=== PATIENT | female | born 1990 | race Caucasian/White ===

== ENCOUNTER 2019-02-21 09:18 | Emergency (ER) | payer MEDICAID, OTHER, SELFPAY ==
--- NOTE | 2019-02-21 09:55 | ERPHSYRPT ---
- History of Present Illness Time Seen by Provider: 02/21/19 09:35 Source: patient Exam Limitations: clinical condition Patient Subjective Stated Complaint: slipped and fell on wooden steps and wants to do a baby check due to being 16 weeks Triage Nursing Assessment: Pt stated that she slipped and fell on wooden wet steps and is 16 weeks , wants to make sure the baby is okay, left lower back has abrasions and minor swelling, left lateral ankle has an abrasion, heart tones heard of 160, reports no other issues at this time Physician History: PATIENT IS A -1, 16 WEEKS GESTATION STATES SHE SLIPPED ONTO STEPS, FELL AND SUSTAINED INJURY TO LEFT LOWER BACK, LEFT HIP AND LEFT ANKLE. DENIES ASSOCIATED HEAD, NECK OR ABDOMINAL INJURY. Occurred: just prior to arrival Reason for Fall: slipped Injuries/Pain Location: back, lower extremity Loss of Consciousness: no loss of consciousness Quality: throbbing Severity of Pain-Max: moderate Severity of Pain-Current: moderate Modifying Factors: Improves With: movement Associated Symptoms (Fall): back pain, extremity injury Allergies/Adverse Reactions: amoxicillin trihydrate [From Augmentin] Allergy (Verified 06/17/16 19:46) chocolate flavor Allergy (Verified 02/21/19 09:34) Penicillins Allergy (Verified 06/17/16 19:46) potassium clavula *RETIRED-03/19/13 [From Augmentin] Allergy (Unverified 19:46) potassium clavulanate [From Augmentin] Allergy (Verified 06/17/16 19:46) Home Medications: Vits W-Ca,Fe,FA(<1Mg) [] 1 each PO DAILY 02/21/19 [History] Hx Tetanus, Diphtheria Vaccination/Date Given: Yes (up to date) Hx Influenza Vaccination/Date Given: No Hx Pneumococcal Vaccination/Date Given: No - Review of Systems Constitutional: No Fever, No Chills Eyes: No Symptoms Ears, Nose, & Throat: No Symptoms Respiratory: No Cough, No Dyspnea Cardiac: No Chest Pain, No Edema, No Syncope Abdominal/Gastrointestinal: No Abdominal Pain, No Nausea, No Vomiting, No Diarrhea Genitourinary Symptoms: No Dysuria Musculoskeletal: Injury, Joint Pain, Joint Swelling, No Back Pain, No Neck Pain Skin: No Rash Neurological: No Dizziness, No Focal Weakness, No Sensory Changes Psychological: No Symptoms Endocrine: No Symptoms All Other Systems: Reviewed and Negative - Past Medical History Pertinent Past Medical History: Yes Neurological History: No Pertinent History ENT History: No Pertinent History Cardiac History: No Pertinent History Respiratory History: No Pertinent History Endocrine Medical History: No Pertinent History Musculoskeletal History: No Pertinent History GI Medical History: No Pertinent History History: No Pertinent History Psycho-Social History: Anxiety Female Reproductive Disorders: No Pertinent History - Past Surgical History Past Surgical History: No Neuro Surgical History: No Pertinent History Cardiac: No Pertinent History Respiratory: No Pertinent History Gastrointestinal: No Pertinent History Genitourinary: No Pertinent History Musculoskeletal: No Pertinent History Female Surgical History: No Pertinent History Other Surgical History: tonsilectomy - Social History Smoking Status: Former smoker How long have you smoked: 3 YEARS Exposure to second hand smoke: No Drug Use: none Patient Lives Alone: No - Female History Hx Now: Yes Expected Date of Delivery: 08/07/19 - Nursing Vital Signs Nursing Vital Signs: Initial Vital Signs Temperature 97.9 F 02/21/19 09:23 Pulse Rate 98 H 02/21/19 09:23 Blood Pressure 129/77 02/21/19 09:23 O2 Sat by Pulse Oximetry 100 02/21/19 09:23 Pain Scale Pain Intensity 0 - [place] Coma Score Best Eye Response (Judi): (4) open spontaneously Best Verbal Response (Judi): (5) oriented Best Motor Response ([place]): (6) obeys commands Judi Total: 15 - Physical Exam General Appearance: no apparent distress, alert Head Injury: no evidence of injury Eye Exam: PERRL/EOMI ENT Exam: airway nml Neck Exam: supple, full range of motion, normal inspection, No tenderness Respiratory/Chest Exam: normal breath sounds, No chest tenderness, No respiratory distress Cardiovascular Exam: normal heart sounds, regular rate/rhythm Gastrointestinal Exam: soft, normal bowel sounds, other (, UTERUS ENLARGED TO LEVEL OF UMBILICUS), No tenderness, No distention, No guarding, No ecchymosis Back Exam: normal inspection, normal range of motion, other (TENDERNESS LEFT POSTERIOR PELVIS ABRASION 7CM X 8CM AREA SWELLING WITH FAINT ECCHYMOSIS, NO CREPITUS), No vertebral tenderness Extremity Exam: normal inspection, normal range of motion, pelvis stable, tenderness (TENDERNESS LEFT GREATER TROCHANTER, NO CREPITUS OR ECCHYMOS, FULL RANGE OF MOTION LEFT HIP, LEFT ANKLE 1CM ABRASION, MINIMAL SWELLING), No deformities Neurologic Exam: alert, oriented x 3, cooperative, sensation nml, No motor deficits Skin Exam: normal color, warm, dry SpO2 Interpretation: normal SpO2: 100 - Progress Progress Note: 02/21/19 09:56 HEART TONES 160 Counseled pt/family regarding: diagnosis, need for follow-up - Departure Departure Disposition: Home Clinical Impression: LEFT POSTERIOR PELVIC CONTUSION, LEFT HIP CONTUSION, LEFT ANKLE ABRASION/ CONTUSION Condition: Stable Critical Care Time: No Referrals: KHUSHBU BUCKNER [Primary Care Provider] - Additional Instructions: TYLENOL EVERY 4 HOURS NEEDED FOR PAIN. APPLY ICE OVER EXTREMITY AND BACK SWELLING EVERY 4 HOURS, 30 MINUTES FOR 48 HOURS. FOLLOWUP WITH YOUR PRIMARY CARE PROVIDER IN 1 WEEK.
[2019-02-21 10:14] VITALS: BP 136/92; PULSE 78; O2SAT 98
== END 2019-02-21 10:17 | disposition home or self-care (01) ==
LOC: ED 09:18
DX: S30.0XXA Contusion of lower back and pelvis, initial encounter (principal); S30.810A Abrasion of lower back and pelvis, initial encounter; S90.512A Abrasion, left ankle, initial encounter; S70.02XA Contusion of left hip, initial encounter; W01.198A Fall on same level from slipping, tripping and stumbling with subsequent striking against other object, initial encounter; R58 Hemorrhage, not elsewhere classified; F41.9 Anxiety disorder, unspecified; Z33.1 Pregnant state, incidental
CPT/HCPCS: 99283

== ENCOUNTER 2019-07-16 08:04 | Observation (INO) | payer OTHER ==
[2019-07-16 09:19] VITALS: O2SAT 98
[2019-07-16 09:47] LABS: Appearance SLIGHTLY CLOUDY (CLEAR); Bacteria RARE /HPF (NEGATIVE); Bilirubin NEGATIVE (NEGATIVE); Blood SMALL Ery/ul (0-5); Epithelial Cells RARE /HPF (FEW); Glucose NEGATIVE (NEGATIVE); Ketones NEGATIVE (NEGATIVE); Leukocyte Esterase SMALL (NEGATIVE); Mucus SLIGHT /HPF (NEGATIVE); Nitrite NEGATIVE (NEGATIVE); Protein,Urine Dip NEGATIVE (Negative); Specific Gravity 1.012 (1.005-1.025); Urobilinogen NEGATIVE mg/dL (0-1)
[2019-07-16 09:49] LABS: RBC 0-2 /HPF (0-2)
[2019-07-16] MEDS ORDERED: PITOCIN 30 UNITS/ LR 500 ML 500 ML IV SCH (10:30)
[2019-07-16] MEDS: Lactated Ringers 1,000 ML IV SCH ×3 (10:31→16:32)
[2019-07-16 10:35] LABS: BASOPHIL % 0.2 % (0.0-0.4); Basophil (Absolute #) 0.03 (0-0.4); Eosinophil % 0.3 % (0.00-5.0); Eosinophil (Absolute #) 0.05 (0-0.5); Granulocyte Absolute (ANC) 11.88 (1.4-6.9); Granulocytes % 80.5 % (36.0-66.0); Hematocrit 34.9 % (35-47); Hemoglobin 11.3 gm/dl (12.0-16.0); Lymphocyte (Absolute #) 1.68 (1.0-4.6); Lymphocytes % 11.4 % (24.0-44.0); Mean Cell Volume 87.7 fl (78-100); Mean Corpuscular Hgb Concent. 32.4 g/dl (32-36); Mean Platelet Volume 10.1 fl (6-9.5); Monocyte (Absolute #) 1.12 (0.0-1.3); Monocytes % 7.6 % (0.0-12.0); Platelet Count 277 K/mm3 (150-450); Red Blood Count 3.98 M/mm3 (4.1-5.4); Red Cell Distribution Width 12.9 % (11.5-14.0); White Blood Count 14.8 K/mm3 (4.0-10.5)
[2019-07-16 10:40] LABS: Mean Corpuscular Hemoglobin 28.3 pg (26-32)
[2019-07-16 12:57] LABS: Amphetamine,Urine NEGATIVE (NEGATIVE); Barbiturate,Urine NEGATIVE (NEGATIVE); Benzodiazepine,Urine NEGATIVE (NEGATIVE); Cocaine,Urine NEGATIVE (NEGATIVE); Methadone,Urine NEGATIVE (NEGATIVE); Opiate,Urine NEGATIVE (NEGATIVE); PCP,Urine NEGATIVE (NEGATIVE); THC,Urine NEGATIVE (NEGATIVE)
[2019-07-16 13:11] VITALS: BP 124/64; PULSE 77
[2019-07-16] MEDS ORDERED: STADOL 2 MG IV PRN (14:11)
== END 2019-07-16 17:50 | disposition home or self-care (01) ==
LOC: OB 08:04
PROVIDERS: ADMIT Family Medicine; ATTEND Family Medicine
DX: O60.03 Preterm labor without delivery, third trimester (principal); Z3A.36 36 weeks gestation of pregnancy
CPT/HCPCS: 36415; 80307; 81001; 85025; 87340; G0378; J0595

== ENCOUNTER 2019-09-13 22:17 | Emergency (ER) | payer OTHER ==
--- NOTE | 2019-09-13 22:58 | ERPHSYRPT ---
- History of Present Illness Time Seen by Provider: 09/13/19 22:58 Historian: patient Exam Limitations: no limitations Patient Subjective Stated Complaint: "I have had pain in my right side abd near my belly button. It has hurt for a few days now. I am about 8 weeks post . I have had nausea. My pain has recently radiated to my pelvic region. Triage Nursing Assessment: Pt presents to ER with complaints of abd pains, states pain is in right side and has radiated to lower pelvic region. States has had nausea, denies vomiting or diarrhea. States everytime she eats something her stomach hurts. Rates pain 7/10 scale. Tenderness on palpatation. Pt lungs clear and resp unlabored at this time. States had normal delivery of baby 8 weeks prior. Vaginal delivery. Denies menstral cycle post . States is sexual active without pain during intercourse. Denies any increased discharge or bleeding. Physician History: pt had post delivery bleeding for three weeks and now has intermittent sharp pains in right adnexa - no discharge, some urinary symptoms of pressure abdomen has no peritoneal signs or rebound and minimal right mid tenderness Activities at Onset: other (sex activity precipitated originally) Abdominal Pain Onset Location: periumbilical, suprapubic Pain Radiation: periumbilical Severity of Pain-Max: moderate Severity of Pain-Current: moderate Modifying Factors: Improves With: movement, urinating Associated Symptoms: No fever/chills, No vomiting Previous symptoms: same symptoms as today Allergies/Adverse Reactions: amoxicillin trihydrate [From Augmentin] Allergy (Verified 09/13/19 22:47) chocolate flavor Allergy (Verified 09/13/19 22:47) Penicillins Allergy (Verified 09/13/19 22:47) potassium clavula *RETIRED-03/19/13 [From Augmentin] Allergy (Verified 09/13/19 22:47) potassium clavulanate [From Augmentin] Allergy (Verified 09/13/19 22:47) Hx Tetanus, Diphtheria Vaccination/Date Given: No Hx Influenza Vaccination/Date Given: No Hx Pneumococcal Vaccination/Date Given: No Immunizations Up to Date: Yes - Review of Systems Constitutional: No Fever, No Chills Eyes: No Symptoms Ears, Nose, & Throat: No Symptoms Respiratory: No Cough, No Dyspnea Cardiac: No Chest Pain, No Edema, No Syncope Abdominal/Gastrointestinal: Abdominal Pain, No Nausea, No Vomiting, No Diarrhea Genitourinary Symptoms: Dysuria, Frequency Musculoskeletal: No Back Pain, No Neck Pain Skin: No Rash Neurological: No Dizziness, No Focal Weakness, No Sensory Changes Psychological: No Symptoms Endocrine: No Symptoms Hematologic/Lymphatic: No Symptoms Immunological/Allergic: No Symptoms All Other Systems: Reviewed and Negative - Past Medical History Pertinent Past Medical History: Yes Neurological History: No Pertinent History ENT History: No Pertinent History Cardiac History: No Pertinent History Respiratory History: No Pertinent History Endocrine Medical History: No Pertinent History Musculoskeletal History: No Pertinent History GI Medical History: No Pertinent History History: No Pertinent History Psycho-Social History: Anxiety Female Reproductive Disorders: No Pertinent History - Past Surgical History Past Surgical History: Yes Neuro Surgical History: No Pertinent History Cardiac: No Pertinent History Respiratory: No Pertinent History Gastrointestinal: No Pertinent History Genitourinary: No Pertinent History Musculoskeletal: No Pertinent History Female Surgical History: No Pertinent History Other Surgical History: wisdom and molar removed 08/15/19 - Social History Smoking Status: Former smoker How long have you smoked: 3 YEARS Exposure to second hand smoke: No Drug Use: none Patient Lives Alone: No - Female History Hx Last Menstrual Period: 11/01/2018 Hx Now: (unknown) - Nursing Vital Signs Nursing Vital Signs: Initial Vital Signs Temperature 98 F 09/13/19 22:32 Pulse Rate 78 09/13/19 22:32 Respiratory Rate 16 09/13/19 22:32 Blood Pressure 147/76 09/13/19 22:32 O2 Sat by Pulse Oximetry 98 09/13/19 22:32 Pain Scale Pain Intensity 7 - Physical Exam General Appearance: no apparent distress, alert Eye Exam: PERRL/EOMI, eyes nml inspection Ears, Nose, Throat Exam: normal ENT inspection, pharynx normal, moist mucous membranes Neck Exam: normal inspection, non-tender, supple, full range of motion Respiratory Exam: normal breath sounds, lungs clear, No respiratory distress Cardiovascular Exam: regular rate/rhythm, normal heart sounds Gastrointestinal/Abdomen Exam: soft, tenderness, No mass, No guarding, No pulsatile mass, No rebound, No organomegaly Pelvic Exam: deferred Rectal Exam: deferred Back Exam: normal inspection, normal range of motion, No CVA tenderness, No vertebral tenderness Extremity Exam: normal inspection, normal range of motion, pelvis stable Neurologic Exam: alert, oriented x 3, cooperative, normal mood/affect, nml cerebellar function, sensation nml, No motor deficits Skin Exam: normal color, warm, dry SpO2: 98 - Course Nursing assessment & vital signs reviewed: Yes - Radiology Ultrasound Exam Pelvis Ultrasound: No Torsion/Nml Flow (normal uterus also per tech report) , Other (ruptured ovarian cyst with fluid) Ordered Tests: Active Orders 24 hr Category Date Time Status IV Insertion STAT Care 09/13/19 23:04 Active PELVIC [US] Stat Exams 09/13/19 23:07 Ordered AMYLASE Stat Lab 09/13/19 23:25 Completed CBC W DIFF Stat Lab 09/13/19 23:25 Completed CMP Stat Lab 09/13/19 23:25 Completed HCG QUALITATIVE,SERUM Stat Lab 09/13/19 23:25 Completed LIPASE Stat Lab 09/13/19 23:25 Completed Lactic Acid Stat Lab 09/13/19 23:04 Completed UA W/RFX UR CULTURE Stat Lab 09/13/19 22:45 Completed Medication Summary Discontinued Medications Generic Name Dose Route Start Last Admin Trade Name Waqas PRN Reason Stop Dose Admin Sodium Chloride 1,000 mls @ 999 mls/hr 09/13/19 23:04 09/13/19 23:30 Sodium Chloride 0.9% 1000 Ml IV 09/14/19 00:04 999 mls/hr .Q1H1M STA Administration Sodium Chloride Confirm 09/13/19 23:28 Sodium Chloride 0.9% 1000 Ml Administered 09/13/19 23:29 Dose 1,000 mls @ ud .ROUTE .STK-MED ONE Lab/Rad Data: Laboratory Result Diagrams 09/13/19 23:25 09/13/19 23:25 Laboratory Results 09/14/19 09/13/19 09/13/19 Range/Units 00:18 23:25 23:25 WBC (4.0-10.5) K/mm3 RBC (4.1-5.4) M/mm3 Hgb (12.0-16.0) gm/dl Hct (35-47) % MCV (78-100) fl MCH (26-32) pg MCHC (32-36) g/dl RDW (11.5-14.0) % Plt Count (150-450) K/mm3 MPV (6-9.5) fl Gran % (36.0-66.0) % Eos # (Auto) (0-0.5) Absolute Lymphs (auto) (1.0-4.6) Absolute Monos (auto) (0.0-1.3) Lymphocytes % (24.0-44.0) % Monocytes % (0.0-12.0) % Eosinophils % (0.00-5.0) % Basophils % (0.0-0.4) % Absolute Granulocytes (1.4-6.9) Basophils # (0-0.4) Sodium 142 (137-145) mmol/L Potassium 3.6 (3.5-5.1) mmol/L Chloride 108 H (98-107) mmol/L Carbon Dioxide 26 (22-30) mmol/L Anion Gap 11.6 (5-15) MEQ/L BUN 8 (7-17) mg/dL Creatinine 0.75 (0.52-1.04) mg/dL Estimated GFR > 60.0 ML/MIN Glucose 111 H (74-106) mg/dL Lactic Acid 0.8 (0.4-2.0) Calcium 9.3 (8.4-10.2) mg/dL Total Bilirubin 0.30 (0.2-1.3) mg/dL AST 17 (14-36) U/L ALT 10 (0-35) U/L Alkaline Phosphatase 65 (38-126) U/L Serum Total Protein 6.9 (6.3-8.2) g/dL Albumin 3.8 (3.5-5.0) g/dL Amylase 58 (30-110) U/L Lipase 65 (23-300) U/L Serum , Qual NEGATIVE (Negative) Urine Color (YELLOW) Urine Appearance (CLEAR) Urine pH (5-6) Ur Specific [place] (1.005-1.025) Urine Protein (Negative) Urine Ketones (NEGATIVE) Urine Blood (0-5) Kirby/ul Urine Nitrite (NEGATIVE) Urine Bilirubin (NEGATIVE) Urine Urobilinogen (0-1) mg/dL Ur Leukocyte Esterase (NEGATIVE) Urine WBC (Auto) (0-5) /HPF Urine RBC (Auto) (0-2) /HPF Urine Mucus (Auto) (NEGATIVE) /HPF Urine Culture Reflexed (NO) Urine Glucose (NEGATIVE) mg/dL 10/19/19 10/19/19 Range/Units 23:25 22:45 WBC 6.1 (4.0-10.5) K/mm3 RBC 4.14 (4.1-5.4) M/mm3 Hgb 11.7 L (12.0-16.0) gm/dl Hct 36.2 (35-47) % MCV 87.4 (78-100) fl MCH 28.2 (26-32) pg MCHC 32.3 (32-36) g/dl RDW 15.5 H (11.5-14.0) % Plt Count 297 (150-450) K/mm3 MPV 10.3 H (6-9.5) fl Gran % 51.1 (36.0-66.0) % Eos # (Auto) 0.17 (0-0.5) Absolute Lymphs (auto) 2.12 (1.0-4.6) Absolute Monos (auto) 0.66 (0.0-1.3) Lymphocytes % 34.6 (24.0-44.0) % Monocytes % 10.8 (0.0-12.0) % Eosinophils % 2.8 (0.00-5.0) % Basophils % 0.7 (0.0-0.4) % Absolute Granulocytes 3.14 (1.4-6.9) Basophils # 0.04 (0-0.4) Sodium (137-145) mmol/L Potassium (3.5-5.1) mmol/L Chloride (98-107) mmol/L Carbon Dioxide (22-30) mmol/L Anion Gap (5-15) MEQ/L BUN (7-17) mg/dL Creatinine (0.52-1.04) mg/dL Estimated GFR ML/MIN Glucose (74-106) mg/dL Lactic Acid (0.4-2.0) Calcium (8.4-10.2) mg/dL Total Bilirubin (0.2-1.3) mg/dL AST (14-36) U/L ALT (0-35) U/L Alkaline Phosphatase (38-126) U/L Serum Total Protein (6.3-8.2) g/dL Albumin (3.5-5.0) g/dL Amylase (30-110) U/L Lipase (23-300) U/L Serum , Qual (Negative) Urine Color COLORLESS (YELLOW) Urine Appearance CLEAR (CLEAR) Urine pH 7.0 (5-6) Ur Specific [place] 1.001 (1.005-1.025) Urine Protein NEGATIVE (Negative) Urine Ketones NEGATIVE (NEGATIVE) Urine Blood NEGATIVE (0-5) Kirby/ul Urine Nitrite NEGATIVE (NEGATIVE) Urine Bilirubin NEGATIVE (NEGATIVE) Urine Urobilinogen NEGATIVE (0-1) mg/dL Ur Leukocyte Esterase NEGATIVE (NEGATIVE) Urine WBC (Auto) NONE (0-5) /HPF Urine RBC (Auto) NONE (0-2) /HPF Urine Mucus (Auto) SLIGHT (NEGATIVE) /HPF Urine Culture Reflexed NO (NO) Urine Glucose NEGATIVE (NEGATIVE) mg/dL - Progress Progress: improved, re-examined Progress Note: 09/14/19 01:13 discussed potential risk of appendicitis with pt and family and that CT scan could be helpful to exclude this - they have decided not to go with CT after discussion of risks and benefits and understand that there could be serious pathology still evolving undetected but have the capacity to make that choice. Counseled pt/family regarding: lab results, diagnosis, need for follow-up, rad results - Departure Departure Disposition: Home Clinical Impression: Abdominal pain of unknown etiology, ruptured ovarian cyst with fluid Condition: Good Critical Care Time: No Referrals: KHUSHBU BUCKNER [Primary Care Provider] - Instructions: Acute Abdomen (Belly Pain), Adult (DC), Ovarian Cyst (DC) Additional Instructions: Although a ruptured ovarian cyst was found , we have not yet determined the precise cause of your abdominal pain and additional problems could still be developing so further workup with your dr is advised especially if this continues. an early appendicitis is also a possibility. return meantime if not improving, any vomiting, fever, increased pain, dizziness or other concerns.
[2019-09-13] MEDS ORDERED: Sodium Chloride 0.9% 1000 ML 1,000 ML IV STA (23:04)
[2019-09-13 23:27] LABS: Appearance CLEAR (CLEAR); Bilirubin NEGATIVE (NEGATIVE); Blood NEGATIVE Ery/ul (0-5); Glucose NEGATIVE (NEGATIVE); Ketones NEGATIVE (NEGATIVE); Leukocyte Esterase NEGATIVE (NEGATIVE); Mucus SLIGHT /HPF (NEGATIVE); Nitrite NEGATIVE (NEGATIVE); Protein,Urine Dip NEGATIVE (Negative); Specific Gravity 1.001 (1.005-1.025); Urobilinogen NEGATIVE mg/dL (0-1)
[2019-09-13] MEDS ORDERED: Sodium Chloride 0.9% 1000 ML 1,000 ML ONE (23:28)
[2019-09-13 23:33] VITALS: PULSE 50
[2019-09-13 23:34] LABS: Absolute Neutrophil Ct (ANC) 3.14 (1.4-6.9); BASOPHIL % 0.7 % (0.0-0.4); Basophil (Absolute #) 0.04 (0-0.4); Eosinophil % 2.8 % (0.00-5.0); Eosinophil (Absolute #) 0.17 (0-0.5); Hematocrit 36.2 % (35-47); Hemoglobin 11.7 gm/dl (12.0-16.0); Lymphocyte (Absolute #) 2.12 (1.0-4.6); Lymphocytes % 34.6 % (24.0-44.0); Mean Cell Volume 87.4 fl (78-100); Mean Corpuscular Hgb Concent. 32.3 g/dl (32-36); Mean Platelet Volume 10.3 fl (6-9.5); Monocyte (Absolute #) 0.66 (0.0-1.3); Monocytes % 10.8 % (0.0-12.0); Neutrophil % 51.1 % (36.0-66.0); Platelet Count 297 K/mm3 (150-450); Red Blood Count 4.14 M/mm3 (4.1-5.4); Red Cell Distribution Width 15.5 % (11.5-14.0); White Blood Count 6.1 K/mm3 (4.0-10.5)
[2019-09-13 23:35] LABS: Mean Corpuscular Hemoglobin 28.2 pg (26-32)
[2019-09-13 23:45] LABS: ALBUMIN 3.8 g/dL (3.5-5.0); ALKALINE PHOSPHATASE 65 U/L (38-126); AMYLASE 58 U/L (30-110); ANION GAP 11.6 MEQ/L (5-15); BLOOD UREA NITROGEN 8 mg/dL (7-17); CHLORIDE 108 mmol/L (98-107); Calcium 9.3 mg/dL (8.4-10.2); Carbon Dioxide 26 mmol/L (22-30); Creatinine 1 0.75 mg/dL (0.52-1.04); Glucose 111 mg/dL (74-106); LIPASE 65 U/L (23-300); Potassium 3.6 mmol/L (3.5-5.1); SGOT/AST 17 U/L (14-36); SGPT/ALT 10 U/L (0-35); SODIUM 142 mmol/L (137-145); Total Protein 6.9 g/dL (6.3-8.2)
[2019-09-14 01:42] VITALS: BP 128/73; O2SAT 99
--- NOTE | 2019-09-14 08:01 | XRAY ---
Indication: Pelvic pain 2 weeks, right greater than left. Two-dimensional transabdominal pelvic sonogram performed. Comparison: None Uterus anteverted measuring 9.7 x 6.1 x 4.5 cm. Myometrium homogeneous. Endometrial stripe measures 13.5 mm with tiny fluid near the fundus. No endometrial cavity mass. Right ovary measures 4.2 x 3.9 x 1.7 cm and the left measures 3.3 x 1.8 x 4.2 cm. Normal follicular cysts and color perfusion bilaterally. Right ovary demonstrates a collapsing cyst with tiny cul-de-sac fluid. Impression: 1. Thickened endometrial stripe with tiny fluid. Correlate with patient's menstrual cycle. 2. Collapsing right ovary cyst with tiny cul-de-sac fluid. 3. Remaining transabdominal pelvic sonogram is negative. Comment: Preliminary report was given.
== END 2019-09-14 01:48 | disposition home or self-care (01) ==
LOC: ED 22:17
DX: R10.9 Unspecified abdominal pain (principal); N83.209 Unspecified ovarian cyst, unspecified side
CPT/HCPCS: 36000; 36415; 76856; 80053; 81001; 81025; 82150; 83605; 83690; 85025; 96360; 99284

== ENCOUNTER 2019-12-13 11:46 | Emergency (ER) | payer SELFPAY ==
[2019-12-13 12:00] VITALS: PULSE 140
--- NOTE | 2019-12-13 12:05 | ERPHSYRPT ---
- History of Present Illness Time Seen by Provider: 12/13/19 12:03 Source: patient Exam Limitations: no limitations Patient Subjective Stated Complaint: Pt states "My daughter has been vomiting and diarrhea for a couple of days and I do not feel well." Triage Nursing Assessment: Pt presented alert and oriented X 3, skin pwd. Pt ambulates with an upright steady gait, able to speak in clear full sentenceds pt in no apparent respiratory distress. Physician History: c/o vomiting and not feeling well. also has 4 months old who is also sick with diarrhea Timing/Duration: today Associated Symptoms: vomiting, loss of appetite Allergies/Adverse Reactions: amoxicillin trihydrate [From Augmentin] Allergy (Verified 09/13/19 22:47) chocolate flavor Allergy (Verified 09/13/19 22:47) Penicillins Allergy (Verified 09/13/19 22:47) potassium clavula *RETIRED-03/19/13 [From Augmentin] Allergy (Verified 09/13/19 22:47) potassium clavulanate [From Augmentin] Allergy (Verified 09/13/19 22:47) Hx Tetanus, Diphtheria Vaccination/Date Given: Yes Hx Influenza Vaccination/Date Given: No Hx Pneumococcal Vaccination/Date Given: No Immunizations Up to Date: Yes - Review of Systems Constitutional: No Fever, No Chills Eyes: No Symptoms Ears, Nose, & Throat: No Symptoms Respiratory: No Cough, No Dyspnea Cardiac: No Chest Pain, No Edema, No Syncope Abdominal/Gastrointestinal: No Abdominal Pain, No Nausea, No Vomiting, No Diarrhea Genitourinary Symptoms: No Dysuria Musculoskeletal: No Back Pain, No Neck Pain Skin: No Rash Neurological: No Dizziness, No Focal Weakness, No Sensory Changes Psychological: No Symptoms Endocrine: No Symptoms All Other Systems: Reviewed and Negative - Past Medical History Pertinent Past Medical History: Yes Neurological History: No Pertinent History ENT History: No Pertinent History Cardiac History: No Pertinent History Respiratory History: No Pertinent History Endocrine Medical History: No Pertinent History Musculoskeletal History: No Pertinent History GI Medical History: No Pertinent History History: No Pertinent History Psycho-Social History: Anxiety Female Reproductive Disorders: No Pertinent History - Past Surgical History Past Surgical History: Yes Neuro Surgical History: No Pertinent History Cardiac: No Pertinent History Respiratory: No Pertinent History Gastrointestinal: No Pertinent History Genitourinary: No Pertinent History Musculoskeletal: No Pertinent History Female Surgical History: No Pertinent History Other Surgical History: wisdom and molar removed 08/15/19 - Social History Smoking Status: Former smoker How long have you smoked: 3 YEARS Exposure to second hand smoke: No Drug Use: none Patient Lives Alone: No - Female History Hx Last Menstrual Period: 11/09/2019 Hx Now: No - Nursing Vital Signs Nursing Vital Signs: Initial Vital Signs Temperature 97.8 F 12/13/19 11:54 Pulse Rate 140 H 12/13/19 11:54 Respiratory Rate 18 12/13/19 11:54 Blood Pressure 116/91 12/13/19 11:54 O2 Sat by Pulse Oximetry 97 12/13/19 11:54 Pain Scale Pain Intensity 4 - Physical Exam General Appearance: no apparent distress, alert Eye Exam: PERRL/EOMI, eyes nml inspection Ears, Nose, Throat Exam: normal ENT inspection, TMs normal, pharynx normal, moist mucous membranes Neck Exam: normal inspection, non-tender, supple, full range of motion Respiratory Exam: normal breath sounds, lungs clear, No respiratory distress Cardiovascular Exam: regular rate/rhythm, normal heart sounds, normal peripheral pulses Gastrointestinal/Abdomen Exam: soft, normal bowel sounds, No tenderness, No mass Back Exam: normal inspection, normal range of motion, No CVA tenderness, No vertebral tenderness Extremity Exam: normal inspection, normal range of motion, pelvis stable Neurologic Exam: alert, oriented x 3, cooperative, normal mood/affect, nml cerebellar function, nml station & gait, sensation nml, No motor deficits Skin Exam: normal color, warm, dry, No rash Lymphatic Exam: No adenopathy SpO2: 97 - Course Nursing assessment & vital signs reviewed: Yes Ordered Tests: Medication Summary Discontinued Medications Generic Name Dose Route Start Last Admin Trade Name Waqas PRN Reason Stop Dose Admin Acetaminophen 500 mg 12/13/19 12:40 12/13/19 12:43 Tylenol Extra Strength 500 Mg PO 12/13/19 12:41 500 mg STAT STA Administration Acetaminophen Confirm 12/13/19 12:42 Tylenol Extra Strength 500 Mg Administered 12/13/19 12:43 Dose 500 mg .ROUTE .[facility]-HomeStay ONE Lab/Rad Data: Laboratory Results 12/13/19 Range/Units 12:08 Influenza Type A Ag NEGATIVE (NEGATIVE) Influenza Type B Ag NEGATIVE (NEGATIVE) RSV (PCR) NEGATIVE (Negative) - Progress Progress: improved Counseled pt/family regarding: lab results, diagnosis, need for follow-up - Departure Departure Disposition: Home Clinical Impression: Vomiting alone Condition: Good Critical Care Time: No Referrals: CELINE CORRAL [Primary Care Provider] - Instructions: Vomiting -- Adult Additional Instructions: Discharge/Care Plan CAROLYN MARRUFO was seen on 12/13/19 in the Emergency Room. The patient was counseled regarding Diagnosis,Lab results, Imaging studies, need for follow up and when to return to the Emergency Room. Prescriptions given: Discharge Note I have spoken with the patient and/or caregivers. I have explained the patient' s condition, diagnosis and treatment plan based on the information available to me at this time. I have answered the patient's and/or caregiver's questions and addressed any concerns. The patient and/or caregivers have as good understanding of the patient's diagnosis, condition and treatment plan as can be expected at this point. The vital signs have been stable. The patient's condition is stable and appropriate for discharge from the emergency department. The patient will pursue further outpatient evaluation with the primary care physician or other designated or consulting physician as outlined in the discharge instructions. The patient and/or caregivers are agreeable to this plan of care and follow-up instructions have been explained in detail. The patient and/or caregivers have received these instruction. The patient/and or caregivers are aware that any significant change in condition or worsening of symptoms should prompt an immediate return to this or the closest emergency department or call 911. Discharge/Care Plan CAROLYN MARRUFO was seen on 12/13/19 in the Emergency Room. The patient was counseled regarding Diagnosis,Lab results, Imaging studies, need for follow up and when to return to the Emergency Room. Prescriptions given: Discharge Note I have spoken with the patient and/or caregivers. I have explained the patient' s condition, diagnosis and treatment plan based on the information available to me at this time. I have answered the patient's and/or caregiver's questions and addressed any concerns. The patient and/or caregivers have as good understanding of the patient's diagnosis, condition and treatment plan as can be expected at this point. The vital signs have been stable. The patient's condition is stable and appropriate for discharge from the emergency department. The patient will pursue further outpatient evaluation with the primary care physician or other designated or consulting physician as outlined in the discharge instructions. The patient and/or caregivers are agreeable to this plan of care and follow-up instructions have been explained in detail. The patient and/or caregivers have received these instruction. The patient/and or caregivers are aware that any significant change in condition or worsening of symptoms should prompt an immediate return to this or the closest emergency department or call 911. NIRUCAROLYN was seen on 12/13/19 n the Emergency Room. At that time you were treated for an emergent condition, during your visit Laboratory, Radiology and/or other procedures may have been ordered. It is very important that you follow-up with your Primary Care Physician CELINE CORRAL within the next 24 -48 hours to review your Emergency Room visit and the final results of testing that was ordered. Some test results such as Urine Cultures, Blood Cultures, and other cultures if ordered will not be finalized for 24-48 hours. If you do not have a Primary Care Provider please call the medical records department at [phone] ext [phone] to obtain a copy of your results or you may sign into our patient portal to obtain these results by visiting us @ [email or web address] and completing the following steps: 1. Click on the Patient Portal link 2. Click the Patient Self Enrollment Link to complete the enrollment form and entering your 3. Once the enrollment form is completed you will receive an email with a temporary ID and password at the email address you provided. 4. Next choose a user name and password. Your user name must be at least 4 characters long and your password must be at least 4 characters long. 5. Choose a security question from the list and provide your answer to the question. If you already have signed into the Health Portal you may access your Health Care Information 18/06 by the following steps: 1. Login to our website @ [email or web address] 2. Enter your original user name and password. FAQS The [facility] Health Portal is an online tool that contains your Lab Results, Radiology Reports, Visit History, Discharge Instructions and Health Summary Lab and Radiology Results will not be available for 72 hours on the portal. The Portal is a secure site, passwords are encryted and URLs are re-written so they cannot be copied and pasted. You and authorized family members are the only ones who can access your Portal. Also there is a timeout feature that protects your information if you leave the Portal page open. If you have technical difficulty please use the Contact Us link on the page this will allow you to submit any questions you have regarding the Portal or you may contact the Medical Record Department at [phone] ext [phone]. Prescriptions: Ondansetron ODT 4 MG [Zofran Odt 4 mg] 4 mg PO Q6H PRN PRN #10 tab.rapdis MDD 4 tabs a day PRN Reason: Vomiting
[2019-12-13] MEDS ORDERED: TYLENOL EXTRA STRENGTH 500 MG PO STA (12:40)
[2019-12-13 12:41] VITALS: BP 112/88
[2019-12-13] MEDS ORDERED: TYLENOL EXTRA STRENGTH 500 MG ONE (12:42)
[2019-12-13 13:02] LABS: INFLUENZA A NEGATIVE (NEGATIVE); INFLUENZA B NEGATIVE (NEGATIVE); RESPIRATORY SYNCTIAL VIRUS NEGATIVE (Negative)
[2019-12-13 13:14] VITALS: O2SAT 97
== END 2019-12-13 13:45 | disposition home or self-care (01) ==
LOC: ED 11:46
DX: R11.10 Vomiting, unspecified (principal)
CPT/HCPCS: 87631; 99283; A9270-GY

== ENCOUNTER 2021-01-18 05:43 | Emergency (ER) | payer OTHER ==
--- NOTE | 2021-01-18 05:57 | ERPHSYRPT ---
- History of Present Illness Historian: patient Exam Limitations: no limitations Timing/Duration: day(s) (3) Quality: cramping Abdominal Pain Onset Location: suprapubic (Midline) Pain Radiation: no radiation Severity of Pain-Max: mild Severity of Pain-Current: mild Associated Symptoms: nausea, No chest pain, No diarrhea, No vomiting Previous symptoms: no prior history <SARI TERAN - Last Filed: 01/18/21 06:43> <AMANDA BURGOS - Last Filed: 01/18/21 08:08> - History of Present Illness Time Seen by Provider: 01/18/21 05:57 Physician History: This is a 30-year-old white female who is approximately 7 weeks per her report and presents with 3-day history of intermittent midline suprapubic cramping pain without associated vaginal bleeding. She denies flank pain. She denies dysuria or hematuria. She denies fevers. She has had fatigue and significant nausea. She is a A0 female. Her pathology technologist is Dr. Gasca. The pain seems to come on no matter what she eats or drinks. Therefore, she has altered her diet and decreased in the last few days. Patient states that she has had a ultrasound performed approximately 4 days ago and it showed a single live intrauterine fetus. I was unable to verify this on the computer system at this time. (SARI TERAN) Allergies/Adverse Reactions: amoxicillin [From Augmentin] Allergy (Verified 01/18/21 06:59) amoxicillin trihydrate [From Augmentin] Allergy (Verified 01/18/21 06:59) chocolate flavor Allergy (Verified 01/18/21 06:59) clavulanic acid [From Augmentin] Allergy (Verified 01/18/21 06:59) Penicillins Allergy (Verified 01/18/21 06:59) potassium clavula *RETIRED-03/19/13 [From Augmentin] Allergy (Verified 01/18/21 06:59) potassium clavulanate [From Augmentin] Allergy (Verified 01/18/21 06:59) Home Medications: Vits W-Ca,Fe,FA(<1Mg) [] 1 each PO DAILY 01/18/21 [History] Travel Risk - International Travel Have you traveled outside of the country in past 3 weeks: No - Coronavirus Screening Are you exhibiting any of the following symptoms?: No Close contact with a COVID-19 positive Pt in past 14-21 Days: No <SARI TERAN - Last Filed: 01/18/21 06:43> - Review of Systems Constitutional: No Symptoms Eyes: No Symptoms Ears, Nose, & Throat: No Symptoms Respiratory: No Symptoms Cardiac: No Symptoms Abdominal/Gastrointestinal: Abdominal Pain (Lower suprapubic midline), Nausea, No Vomiting, No Diarrhea Genitourinary Symptoms: No Symptoms Musculoskeletal: No Symptoms Skin: No Symptoms Neurological: No Symptoms Psychological: No Symptoms Endocrine: No Symptoms Hematologic/Lymphatic: No Symptoms Immunological/Allergic: No Symptoms All Other Systems: Reviewed and Negative <SARI TERAN - Last Filed: 01/18/21 06:43> - Past Medical History Pertinent Past Medical History: Yes - Past Surgical History Past Surgical History: Yes <SARI TERAN - Last Filed: 01/18/21 06:43> - Physical Exam General Appearance: no apparent distress, alert, anxiety Eye Exam: PERRL/EOMI, eyes nml inspection Ears, Nose, Throat Exam: dry mucous membranes Neck Exam: normal inspection, non-tender, supple, full range of motion Respiratory Exam: normal breath sounds, lungs clear, airway intact, No chest tenderness, No respiratory distress Cardiovascular Exam: regular rate/rhythm, normal heart sounds, normal peripheral pulses Gastrointestinal/Abdomen Exam: soft, normal bowel sounds, tenderness, No guarding, No rebound Pelvic Exam: not done Rectal Exam: not done Back Exam: normal inspection, normal range of motion, No CVA tenderness, No vertebral tenderness Extremity Exam: normal inspection, normal range of motion, pelvis stable Neurologic Exam: alert, oriented x 3, cooperative, library science professor II-XII nml as tested, normal mood/affect, nml cerebellar function, nml station & gait, sensation nml Skin Exam: normal color, warm, dry Lymphatic Exam: No adenopathy SpO2 Interpretation: normal O2 Delivery: Room Air <SARI TERAN - Last Filed: 01/18/21 06:43> - Nursing Vital Signs Nursing Vital Signs: Initial Vital Signs Temperature 98.6 F 01/18/21 05:51 Pulse Rate 80 01/18/21 05:51 Respiratory Rate 16 01/18/21 05:51 Blood Pressure 136/74 01/18/21 05:51 O2 Sat by Pulse Oximetry 97 01/18/21 05:51 Pain Scale Pain Intensity 0 - Course Nursing assessment & vital signs reviewed: Yes <SARI TERAN - Last Filed: 01/18/21 06:43> Ordered Tests: Active Orders 24 hr Category Date Time Status IV Insertion STAT Care 01/18/21 06:33 Active AMYLASE Stat Lab 01/18/21 06:45 Completed CBC W DIFF Stat Lab 01/18/21 06:45 Completed CMP Stat Lab 01/18/21 06:45 Completed LIPASE Stat Lab 01/18/21 06:45 Completed Lactic Acid Stat Lab 01/18/21 06:33 Completed UA W/RFX UR CULTURE Stat Lab 01/18/21 06:45 Completed Medication Summary Discontinued Medications Generic Name Dose Route Start Last Admin Trade Name Freq PRN Reason Stop Dose Admin Sodium Chloride 1,000 mls @ 999 mls/hr 01/18/21 06:33 01/18/21 07:48 Sodium Chloride 0.9% 1000 Ml IV 01/18/21 07:33 Infused .Q1H1M STA Infusion Sodium Chloride Confirm 01/18/21 06:44 Sodium Chloride 0.9% 1000 Ml Administered 01/18/21 06:45 Dose 1,000 mls @ ud .ROUTE .STK-MED ONE Ondansetron HCl 4 mg 01/18/21 06:33 01/18/21 06:45 Zofran 4 Mg/2 Ml Vial IV 01/18/21 06:34 4 mg STAT ONE Administration Ondansetron HCl Confirm 01/18/21 06:44 Zofran 4 Mg/2 Ml Vial Administered 01/18/21 06:45 Dose 4 mg .ROUTE .STK-MED ONE Lab/Rad Data: Laboratory Result Diagrams 01/18/21 06:45 01/18/21 06:45 Laboratory Results 01/18/21 01/18/21 01/18/21 Range/Units 06:45 06:45 06:45 WBC 13.3 H (4.0-10.5) K/mm3 RBC 4.27 (4.1-5.4) M/mm3 Hgb 12.5 (12.0-16.0) gm/dl Hct 39.0 (35-47) % MCV 91.3 (78-100) fl MCH 29.3 (26-32) pg MCHC 32.1 (32-36) g/dl RDW 12.9 (11.5-14.0) % Plt Count 283 (150-450) K/mm3 MPV 10.2 (7.5-11.0) fl Gran % 79.1 H (36.0-66.0) % Eos # (Auto) 0.07 (0-0.5) Absolute Lymphs (auto) 1.90 (1.0-4.6) Absolute Monos (auto) 0.79 (0.0-1.3) Lymphocytes % 14.3 L (24.0-44.0) % Monocytes % 5.9 (0.0-12.0) % Eosinophils % 0.5 (0.00-5.0) % Basophils % 0.2 (0.0-0.4) % Absolute Granulocytes 10.53 H (1.4-6.9) Basophils # 0.02 (0-0.4) Sodium 137 (137-145) mmol/L Potassium 3.6 (3.5-5.1) mmol/L Chloride 105 (98-107) mmol/L Carbon Dioxide 22 (22-30) mmol/L Anion Gap 13.5 (5-15) MEQ/L BUN 7 (7-17) mg/dL Creatinine 0.62 (0.52-1.04) mg/dL Estimated GFR > 60.0 ML/MIN Glucose 98 (74-106) mg/dL Lactic Acid (0.4-2.0) Calcium 9.6 (8.4-10.2) mg/dL Total Bilirubin 0.40 (0.2-1.3) mg/dL AST 17 (14-36) U/L ALT 9 (0-35) U/L Alkaline Phosphatase 70 (38-126) U/L Serum Total Protein 7.8 (6.3-8.2) g/dL Albumin 4.4 (3.5-5.0) g/dL Amylase 64 (30-110) U/L Lipase 83 (23-300) U/L Urine Color STRAW (YELLOW) Urine Appearance SLIGHTLY CLOUDY (CLEAR) Urine pH 6.0 (5-6) Ur Specific [place] 1.008 (1.005-1.025) Urine Protein NEGATIVE (Negative) Urine Ketones NEGATIVE (NEGATIVE) Urine Blood NEGATIVE (0-5) Kirby/ul Urine Nitrite NEGATIVE (NEGATIVE) Urine Bilirubin NEGATIVE (NEGATIVE) Urine Urobilinogen NEGATIVE (0-1) mg/dL Ur Leukocyte Esterase MODERATE (NEGATIVE) Urine WBC (Auto) 3-5 (0-5) /HPF Urine RBC (Auto) 0-2 (0-2) /HPF U Hyaline Cast (Auto) 0-2 (0-2) /LPF U Epithel Cells (Auto) RARE (FEW) /HPF Urine Bacteria (Auto) NONE (NEGATIVE) /HPF Urine Mucus (Auto) SLIGHT (NEGATIVE) /HPF Urine Culture Reflexed NO (NO) Urine Glucose NEGATIVE (NEGATIVE) mg/dL 01/18/21 Range/Units 06:33 WBC (4.0-10.5) K/mm3 RBC (4.1-5.4) M/mm3 Hgb (12.0-16.0) gm/dl Hct (35-47) % MCV (78-100) fl MCH (26-32) pg MCHC (32-36) g/dl RDW (11.5-14.0) % Plt Count (150-450) K/mm3 MPV (7.5-11.0) fl Gran % (36.0-66.0) % Eos # (Auto) (0-0.5) Absolute Lymphs (auto) (1.0-4.6) Absolute Monos (auto) (0.0-1.3) Lymphocytes % (24.0-44.0) % Monocytes % (0.0-12.0) % Eosinophils % (0.00-5.0) % Basophils % (0.0-0.4) % Absolute Granulocytes (1.4-6.9) Basophils # (0-0.4) Sodium (137-145) mmol/L Potassium (3.5-5.1) mmol/L Chloride (98-107) mmol/L Carbon Dioxide (22-30) mmol/L Anion Gap (5-15) MEQ/L BUN (7-17) mg/dL Creatinine (0.52-1.04) mg/dL Estimated GFR ML/MIN Glucose (74-106) mg/dL Lactic Acid 0.7 (0.4-2.0) Calcium (8.4-10.2) mg/dL Total Bilirubin (0.2-1.3) mg/dL AST (14-36) U/L ALT (0-35) U/L Alkaline Phosphatase (38-126) U/L Serum Total Protein (6.3-8.2) g/dL Albumin (3.5-5.0) g/dL Amylase (30-110) U/L Lipase (23-300) U/L Urine Color (YELLOW) Urine Appearance (CLEAR) Urine pH (5-6) Ur Specific [place] (1.005-1.025) Urine Protein (Negative) Urine Ketones (NEGATIVE) Urine Blood (0-5) Kirby/ul Urine Nitrite (NEGATIVE) Urine Bilirubin (NEGATIVE) Urine Urobilinogen (0-1) mg/dL Ur Leukocyte Esterase (NEGATIVE) Urine WBC (Auto) (0-5) /HPF Urine RBC (Auto) (0-2) /HPF U Hyaline Cast (Auto) (0-2) /LPF U Epithel Cells (Auto) (FEW) /HPF Urine Bacteria (Auto) (NEGATIVE) /HPF Urine Mucus (Auto) (NEGATIVE) /HPF Urine Culture Reflexed (NO) Urine Glucose (NEGATIVE) mg/dL - Progress Counseled pt/family regarding: lab results <SARI TERAN - Last Filed: 01/18/21 06:43> - Progress Progress: improved Discussed with .: Kofi Will see patient in: office Counseled pt/family regarding: diagnosis, need for follow-up, rad results <AMANDA BURGOS - Last Filed: 01/18/21 08:08> - Progress Progress Note: 01/18/21 06:48 I transferred care of patient to Dr. Amanda Burgos at shift change. He will follow up on the work-up/study results and make final disposition. (SARI TERAN) 01/18/21 08:05 Patient is a 30-year-old female currently 7 weeks with complaints of intermittent suprapubic pain particularly after she eats a meal. Patient endorsed to Dr. Burgos at [address] Burgos advised to follow-up on pending laboratory studies. CBC and BMP are within normal limits. Vital stable. Urine negative for infection. Patient asymptomatic. She is no longer nauseous. She has no abdominal pain or abdominal tenderness. IV fluids infused. Case discussed with Dr. Gasca. Dr. Gasca will see patient this afternoon in her office. Patient will call this morning for an appointment time. Patient requesting discharge. She voices no other complaints or concerns at this time. Will discharge home. Dr. Gasca does not feel there is need for a repeat ultrasound at this time. However patient will be reevaluated this afternoon. (AMANDA BURGOS) - Departure Departure Disposition: Home Critical Care Time: No <SARI TERAN - Last Filed: 01/18/21 06:43> <AMANDA BURGOS - Last Filed: 01/18/21 08:08> - Departure Clinical Impression: Abdominal pain in Condition: Stable Referrals: SCREEN,DRUG [NON-STAFF PHY W/O PRIVILEGES] - Additional Instructions: Please see Dr. Gasca this afternoon. Call this morning for an appointment time. Dr. Gasca states she will see you this afternoon Discharge/Care Plan CAROLYN MARRUFO ERUM was seen on 01/18/21 in the Emergency Room. The patient was counseled regarding Diagnosis,Lab results, Imaging studies, need for follow up and when to return to the Emergency Room. Prescriptions given: Discharge Note I have spoken with the patient and/or caregivers. I have explained the patient's condition, diagnosis and treatment plan based on the information available to me at this time. I have answered the patient's and/or caregiver's questions and addressed any concerns. The patient and/or caregivers have as good understanding of the patient's diagnosis, condition and treatment plan as can be expected at this point. The vital signs have been stable. The patient's condition is stable and appropriate for discharge from the emergency department. The patient will pursue further outpatient evaluation with the primary care physician or other designated or consulting physician as outlined in the discharge instructions. The patient and/or caregivers are agreeable to this plan of care and follow-up instructions have been explained in detail. The patient and/or caregivers have received these instruction. The patient/and or caregivers are aware that any significant change in condition or worsening of symptoms sh ould prompt an immediate return to this or the closest emergency department or call 911.
[2021-01-18] MEDS ORDERED: Zofran 4 MG/2 ML VIAL IV ONE (06:33)
[2021-01-18] MEDS ORDERED: Sodium Chloride 0.9% 1000 ML 1,000 ML IV STA (06:33)
[2021-01-18] MEDS ORDERED: Sodium Chloride 0.9% 1000 ML 1,000 ML ONE (06:44)
[2021-01-18] MEDS ORDERED: Zofran 4 MG/2 ML VIAL ONE (06:44)
[2021-01-18 06:47] VITALS: O2SAT 100
[2021-01-18 06:47] LABS: Absolute Neutrophil Ct (ANC) 10.53 (1.4-6.9); BASOPHIL % 0.2 % (0.0-0.4); Basophil (Absolute #) 0.02 (0-0.4); Eosinophil % 0.5 % (0.00-5.0); Eosinophil (Absolute #) 0.07 (0-0.5); Hemoglobin 12.5 gm/dl (12.0-16.0); Lymphocytes % 14.3 % (24.0-44.0); Mean Cell Volume 91.3 fl (78-100); Mean Corpuscular Hemoglobin 29.3 pg (26-32); Mean Corpuscular Hgb Concent. 32.1 g/dl (32-36); Mean Platelet Volume 10.2 fl (7.5-11.0); Monocyte (Absolute #) 0.79 (0.0-1.3); Monocytes % 5.9 % (0.0-12.0); Neutrophil % 79.1 % (36.0-66.0); Platelet Count 283 K/mm3 (150-450); Red Blood Count 4.27 M/mm3 (4.1-5.4); Red Cell Distribution Width 12.9 % (11.5-14.0); White Blood Count 13.3 K/mm3 (4.0-10.5)
[2021-01-18 06:52] LABS: Appearance SLIGHTLY CLOUDY (CLEAR); Bilirubin NEGATIVE (NEGATIVE); Blood NEGATIVE Ery/ul (0-5); Epithelial Cells RARE /HPF (FEW); Glucose NEGATIVE (NEGATIVE); Hyaline Casts 0-2 /LPF (0-2); Ketones NEGATIVE (NEGATIVE); Leukocyte Esterase MODERATE (NEGATIVE); Mucus SLIGHT /HPF (NEGATIVE); Nitrite NEGATIVE (NEGATIVE); Protein,Urine Dip NEGATIVE (Negative); RBC 0-2 /HPF (0-2); Specific Gravity 1.008 (1.005-1.025); Urobilinogen NEGATIVE mg/dL (0-1)
[2021-01-18 07:04] LABS: ALBUMIN 4.4 g/dL (3.5-5.0); ALKALINE PHOSPHATASE 70 U/L (38-126); AMYLASE 64 U/L (30-110); ANION GAP 13.5 MEQ/L (5-15); BLOOD UREA NITROGEN 7 mg/dL (7-17); CHLORIDE 105 mmol/L (98-107); Calcium 9.6 mg/dL (8.4-10.2); Carbon Dioxide 22 mmol/L (22-30); Creatinine 1 0.62 mg/dL (0.52-1.04); EST GLOMERULAR FILTRATION RATE > 60.0 ML/MIN; Glucose 98 mg/dL (74-106); LIPASE 83 U/L (23-300); Potassium 3.6 mmol/L (3.5-5.1); SGOT/AST 17 U/L (14-36); SGPT/ALT 9 U/L (0-35); SODIUM 137 mmol/L (137-145); Total Protein 7.8 g/dL (6.3-8.2)
[2021-01-18 07:25] VITALS: BP 111/77; PULSE 74
== END 2021-01-18 08:13 | disposition home or self-care (01) ==
LOC: MERGE 05:43 → ED 05:43
DX: R10.30 Lower abdominal pain, unspecified (principal); R11.0 Nausea; Z3A.01 Less than 8 weeks gestation of pregnancy
CPT/HCPCS: 36000; 36415; 80053; 81001; 82150; 83605; 83690; 85025; 96360; 96374; 99284; J2405

== ENCOUNTER 2021-05-30 15:09 | Observation (INO) | payer OTHER ==
[2021-05-30 15:45] LABS: Appearance CLEAR (CLEAR); Bilirubin NEGATIVE (NEGATIVE); Blood NEGATIVE Ery/ul (0-5); Glucose NEGATIVE (NEGATIVE); Ketones TRACE (NEGATIVE); Leukocyte Esterase SMALL (NEGATIVE); Mucus SLIGHT /HPF (NEGATIVE); Nitrite NEGATIVE (NEGATIVE); Protein,Urine Dip NEGATIVE (Negative); Specific Gravity 1.001 (1.005-1.025); Urobilinogen NEGATIVE mg/dL (0-1); WBC 0-2 /HPF (0-5)
[2021-05-30 15:56] LABS: Amphetamine,Urine NEGATIVE (NEGATIVE); Barbiturate,Urine NEGATIVE (NEGATIVE); Benzodiazepine,Urine NEGATIVE (NEGATIVE); Cocaine,Urine NEGATIVE (NEGATIVE); Methadone,Urine NEGATIVE (NEGATIVE); Opiate,Urine NEGATIVE (NEGATIVE); PCP,Urine NEGATIVE (NEGATIVE); THC,Urine NEGATIVE (NEGATIVE)
[2021-05-30] MEDS ORDERED: MORPHINE SULFATE 4 MG INJ IV ONE (16:02)
[2021-05-30] MEDS ORDERED: Zofran 4 MG/2 ML VIAL IV STA (16:03)
[2021-05-30] MEDS ORDERED: Lactated Ringers 1,000 ML IV ONE (16:07)
[2021-05-30 16:38] LABS: Absolute Neutrophil Ct (ANC) 8.19 (1.4-6.9); BASOPHIL % 0.2 % (0.0-0.4); Basophil (Absolute #) 0.02 (0-0.4); Eosinophil % 0.6 % (0.00-5.0); Eosinophil (Absolute #) 0.06 (0-0.5); Hematocrit 36.6 % (35-47); Hemoglobin 11.8 gm/dl (12.0-16.0); Lymphocyte (Absolute #) 1.89 (1.0-4.6); Lymphocytes % 17.5 % (24.0-44.0); Mean Corpuscular Hemoglobin 29.4 pg (26-32); Mean Corpuscular Hgb Concent. 32.2 g/dl (32-36); Mean Platelet Volume 9.9 fl (7.5-11.0); Monocyte (Absolute #) 0.66 (0.0-1.3); Monocytes % 6.1 % (0.0-12.0); Neutrophil % 75.6 % (36.0-66.0); Platelet Count 294 K/mm3 (150-450); Red Blood Count 4.02 M/mm3 (4.1-5.4); Red Cell Distribution Width 13.1 % (11.5-14.0); White Blood Count 10.8 K/mm3 (4.0-10.5)
[2021-05-30 16:52] LABS: ALBUMIN 4.3 g/dL (3.5-5.0); ALKALINE PHOSPHATASE 128 U/L (38-126); ANION GAP 15.7 MEQ/L (5-15); BLOOD UREA NITROGEN 4 mg/dL (7-17); CHLORIDE 106 mmol/L (98-107); Calcium 9.6 mg/dL (8.4-10.2); Carbon Dioxide 18 mmol/L (22-30); Creatinine 1 0.52 mg/dL (0.52-1.04); EST GLOMERULAR FILTRATION RATE > 60.0 ML/MIN; Glucose 89 mg/dL (74-106); Potassium 3.9 mmol/L (3.5-5.1); SGOT/AST 25 U/L (14-36); SGPT/ALT 7 U/L (0-35); SODIUM 136 mmol/L (137-145)
--- NOTE | 2021-05-30 17:22 | XRAY ---
Indication: Right abdomen pain. Limited OB ultrasound performed to evaluate placenta. Single intrauterine with heart rate 149 BPM. Anterior placenta without abnormal retroplacental fluid. Cervix is closed.
[2021-05-30] MEDS ORDERED: MORPHINE SULFATE 4 MG INJ IV PRN (17:34)
[2021-05-30] MEDS: Lactated Ringers 1,000 ML IV SCH (18:43)
[2021-05-30] MEDS: Zofran 4 MG/2 ML VIAL IV PRN (20:22)
--- NOTE | 2021-05-30 21:22 | PCM.HP ---
History of Present Illness - Chief Complaint Chief Complaint: Abdominal pain History of Present Illness: (this document is a late entry, patient was seen and examined at approximately 4pm just after presentation today) is a 30 year old female at 25 4/7 wks EGA who presented to labor and delivery with sudden onset of right abdominal/flank pain that began today, she has no dysuria or frequency, no vaginal bleeding, no LOF, the pain is constant and not like contractions. She has no prior history of similar incidences, no previous kidney stones or abdominal surgery. - Review of Systems Constitutional: No Symptoms Eyes: No Symptoms Ears, Nose, & Throat: No Symptoms Respiratory: No Cough, No Short Of Breath Cardiac: No Chest Pain, No Edema, No Syncope Abdominal/Gastrointestinal: Abdominal Pain, Nausea Genitourinary Symptoms: No Symptoms Musculoskeletal: Back Pain Medications & Allergies Home Medications: Home Medication List Vits W-Ca,Fe,FA(<1Mg) [] 1 each PO DAILY 01/18/21 [History Confirmed 05/30/21] Allergies/Adverse Reactions: Allergies Allergy/AdvReac Type Severity Reaction Status Date / Time amoxicillin [From Augmentin] Allergy Verified 05/30/21 15:44 amoxicillin trihydrate Allergy Verified 05/30/21 15:44 [From Augmentin] chocolate flavor Allergy Verified 05/30/21 15:44 clavulanic acid Allergy Verified 05/30/21 15:44 [From Augmentin] Penicillins Allergy Verified 05/30/21 15:44 potassium clavula Allergy Verified 05/30/21 15:44 *RETIRED-03/19/13 [From Augmentin] potassium clavulanate Allergy Verified 05/30/21 15:44 [From Augmentin] - Past Medical History Past Medical History: Yes Neurological History: No Pertinent History ENT History: No Pertinent History Cardiac History: No Pertinent History Respiratory History: No Pertinent History Endocrine Medical History: No Pertinent History Musculoskelatal History: No Pertinent History GI Medical History: No Pertinent History History: No Pertinent History Pyscho-Social History: Anxiety Reproductive Disorders: No Pertinent History - Female History Are you now?: Yes Expected Date of Delivery: 09/08/21 - Past Surgical History Past Surgical History: Yes Neuro Surgical History: No Pertinent History Cardiac History: No Pertinent History Respiratory Surgery: No Pertinent History GI Surgical History: No Pertinent History Genitourinary Surgical Hx: No Pertinent History Musculskeletal Surgical Hx: No Pertinent History Female Surgical History: No Pertinent History Other Surgical History: wisdom and molar removed 08/15/19 - Social History Smoking Status: Former smoker How long have you smoked: 3 YEARS Exposure to second hand smoke: No Alcohol: None, Occasionally Drug Use: none - Physical Exam Vital Signs: Vital Signs - 24 hr Temp Pulse Resp BP BP Pulse Ox 05/30/21 20:00 98 F 80 18 103/57 99 05/30/21 15:28 71 18 126/71 100 General Appearance: mild distress, alert Neurologic Exam: alert, oriented x 3 Respiratory Exam: normal breath sounds, lungs clear, No respiratory distress Cardiovascular Exam: regular rate/rhythm, normal heart sounds, normal peripheral pulses Gastrointestinal/Abdomen Exam: soft, normal bowel sounds, No tenderness, No mass Back Exam: CVA tenderness (right flank tenderness) Results - Labs Lab/Micro Results: Lab Results-Last 24 Hours 05/30/21 05/30/21 05/30/21 Range/Units 15:19 15:20 16:30 WBC 10.8 H (4.0-10.5) K/mm3 RBC 4.02 L (4.1-5.4) M/mm3 Hgb 11.8 L (12.0-16.0) gm/dl Hct 36.6 (35-47) % MCV 91.0 (78-100) fl MCH 29.4 (26-32) pg MCHC 32.2 (32-36) g/dl RDW 13.1 (11.5-14.0) % Plt Count 294 (150-450) K/mm3 MPV 9.9 (7.5-11.0) fl Gran % 75.6 H (36.0-66.0) % Eos # (Auto) 0.06 (0-0.5) Absolute Lymphs (auto) 1.89 (1.0-4.6) Absolute Monos (auto) 0.66 (0.0-1.3) Lymphocytes % 17.5 L (24.0-44.0) % Monocytes % 6.1 (0.0-12.0) % Eosinophils % 0.6 (0.00-5.0) % Basophils % 0.2 (0.0-0.4) % Absolute Granulocytes 8.19 H (1.4-6.9) Basophils # 0.02 (0-0.4) Sodium (137-145) mmol/L Potassium (3.5-5.1) mmol/L Chloride (98-107) mmol/L Carbon Dioxide (22-30) mmol/L Anion Gap (5-15) MEQ/L BUN (7-17) mg/dL Creatinine (0.52-1.04) mg/dL Estimated GFR ML/MIN Glucose (74-106) mg/dL Calcium (8.4-10.2) mg/dL Total Bilirubin (0.2-1.3) mg/dL AST (14-36) U/L ALT (0-35) U/L Alkaline Phosphatase (38-126) U/L Serum Total Protein (6.3-8.2) g/dL Albumin (3.5-5.0) g/dL Urine Color STRAW (YELLOW) Urine Appearance CLEAR (CLEAR) Urine pH 7.0 (5-6) Ur Specific [place] 1.001 (1.005-1.025) Urine Protein NEGATIVE (Negative) Urine Ketones TRACE (NEGATIVE) Urine Blood NEGATIVE (0-5) Kirby/ul Urine Nitrite NEGATIVE (NEGATIVE) Urine Bilirubin NEGATIVE (NEGATIVE) Urine Urobilinogen NEGATIVE (0-1) mg/dL Ur Leukocyte Esterase SMALL (NEGATIVE) Urine WBC (Auto) 0-2 (0-5) /HPF Urine RBC (Auto) NONE (0-2) /HPF U Epithel Cells (Auto) NONE (FEW) /HPF Urine Bacteria (Auto) NONE (NEGATIVE) /HPF Urine Mucus (Auto) SLIGHT (NEGATIVE) /HPF Urine Culture Reflexed NO (NO) Urine Glucose NEGATIVE (NEGATIVE) mg/dL Urine Opiates Level NEGATIVE (NEGATIVE) Ur Methadone NEGATIVE (NEGATIVE) Urine Barbiturates NEGATIVE (NEGATIVE) Ur Phencyclidine (PCP) NEGATIVE (NEGATIVE) Urine Amphetamine NEGATIVE (NEGATIVE) U Benzodiazepine Level NEGATIVE (NEGATIVE) Urine Cocaine NEGATIVE (NEGATIVE) Urine Marijuana (THC) NEGATIVE (NEGATIVE) 05/30/21 Range/Units 16:30 WBC (4.0-10.5) K/mm3 RBC (4.1-5.4) M/mm3 Hgb (12.0-16.0) gm/dl Hct (35-47) % MCV (78-100) fl MCH (26-32) pg MCHC (32-36) g/dl RDW (11.5-14.0) % Plt Count (150-450) K/mm3 MPV (7.5-11.0) fl Gran % (36.0-66.0) % Eos # (Auto) (0-0.5) Absolute Lymphs (auto) (1.0-4.6) Absolute Monos (auto) (0.0-1.3) Lymphocytes % (24.0-44.0) % Monocytes % (0.0-12.0) % Eosinophils % (0.00-5.0) % Basophils % (0.0-0.4) % Absolute Granulocytes (1.4-6.9) Basophils # (0-0.4) Sodium 136 L (137-145) mmol/L Potassium 3.9 (3.5-5.1) mmol/L Chloride 106 (98-107) mmol/L Carbon Dioxide 18 L (22-30) mmol/L Anion Gap 15.7 H (5-15) MEQ/L BUN 4 L (7-17) mg/dL Creatinine 0.52 (0.52-1.04) mg/dL Estimated GFR > 60.0 ML/MIN Glucose 89 (74-106) mg/dL Calcium 9.6 (8.4-10.2) mg/dL Total Bilirubin 0.20 (0.2-1.3) mg/dL AST 25 (14-36) U/L ALT 7 (0-35) U/L Alkaline Phosphatase 128 H (38-126) U/L Serum Total Protein 8.0 (6.3-8.2) g/dL Albumin 4.3 (3.5-5.0) g/dL Urine Color (YELLOW) Urine Appearance (CLEAR) Urine pH (5-6) Ur Specific [place] (1.005-1.025) Urine Protein (Negative) Urine Ketones (NEGATIVE) Urine Blood (0-5) Kirby/ul Urine Nitrite (NEGATIVE) Urine Bilirubin (NEGATIVE) Urine Urobilinogen (0-1) mg/dL Ur Leukocyte Esterase (NEGATIVE) Urine WBC (Auto) (0-5) /HPF Urine RBC (Auto) (0-2) /HPF U Epithel Cells (Auto) (FEW) /HPF Urine Bacteria (Auto) (NEGATIVE) /HPF Urine Mucus (Auto) (NEGATIVE) /HPF Urine Culture Reflexed (NO) Urine Glucose (NEGATIVE) mg/dL Urine Opiates Level (NEGATIVE) Ur Methadone (NEGATIVE) Urine Barbiturates (NEGATIVE) Ur Phencyclidine (PCP) (NEGATIVE) Urine Amphetamine (NEGATIVE) U Benzodiazepine Level (NEGATIVE) Urine Cocaine (NEGATIVE) Urine Marijuana (THC) (NEGATIVE) - Radiology Impressions Radiology Exams & Impressions: Radiology Procedures Category Date Time Status KIDNEY [US] Stat Exams 05/30/21 16:06 Taken OB LIMITED [US] Stat Exams 05/30/21 15:59 Completed Assessment/Plan (1) Renal colic on right side Current Visit: Yes Status: Acute Assessment & Plan: u/a showes ketonuria but no wbc's or blood, labs and ultrasound were reviewed in addition to UA, OB ultrasound is reassuring and cervix is closed. history c/w renal colic and ultrasound shows renal pelvic dilation and hydro R>L, difficult as this may be physiologic from but with 2cm renal pelvis right and 1cm on left in light of history I suspect a renal stone. plan is IV fluids, morphine and zofran prn tonight. will be seen by Dr Gasca her PCP in the am, if improved no further intervention might be required, however might need urology consult if pain persists. I discussed this plan with the patient and she agrees. Code(s): N23 - UNSPECIFIED RENAL COLIC (2) Current Visit: Yes Status: Acute Assessment & Plan: intermittent monitoring with doppler secondary to gestational age Code(s): Z34.90 - ENCNTR FOR SUPRVSN OF NORMAL , UNSP, UNSP TRIMESTER
[2021-05-31] MEDS: Lactated Ringers 1,000 ML IV SCH ×2 (00:37→08:10)
[2021-05-31 04:30] VITALS: O2SAT 97
[2021-05-31] MEDS: Zofran 4 MG/2 ML VIAL IV PRN (05:00)
[2021-05-31] MEDS ORDERED: TYLENOL 325 MG PO PRN (05:04)
[2021-05-31] MEDS ORDERED: Lactated Ringers 1,000 ML IV ONE (07:02)
[2021-05-31 08:37] VITALS: BP 108/50; PULSE 72
--- NOTE | 2021-05-31 08:51 | XRAY ---
Indication: Right sided pain. 25 weeks plus . Two-dimensional renal sonogram performed. Comparison: September 14, 2009. Both kidneys again normal in reniform shape with normal color perfusion right kidney measures 10.4 x 5.3 x 6.0 cm and left measures 11.0 x 5.1 x 4.7 cm. Both kidneys mildly hydronephrotic presumed related to . No focal solid/cystic mass. Corticomedullary differentiation is preserved. Images of the urinary bladder demonstrates mild echogenic debris in the dependent portion. Ureteral jets not seen. Impression: 1. Bilateral hydronephrosis presumed related to . 2. Urinary bladder debris.
== END 2021-05-31 09:10 | disposition home or self-care (01) ==
LOC: OB 15:09
PROVIDERS: ADMIT Family Medicine; ATTEND Family Medicine
DX: O26.892 Other specified pregnancy related conditions, second trimester (principal); Z3A.25 25 weeks gestation of pregnancy; N23 Unspecified renal colic
CPT/HCPCS: 36415; 76770; 76815; 80053; 80307; 81001; 85025; G0378; J2270; J2405; A9270-GY

== ENCOUNTER 2024-06-14 12:55 | Emergency (ER) | payer OTHER ==
--- NOTE | 2024-06-14 13:06 | ERPHSYRPT ---
- History of Present Illness Time Seen by Provider: 06/14/24 13:06 Source: patient Exam Limitations: no limitations Physician History: The patient, with a known history of vertigo, presented with an acute episode of weakness and near syncope. The episode occurred suddenly while the patient was at a gas station, causing her to feel extremely weak and as if she were about to pass out. The patient also reported feeling dizzy, but noted that she has a history of vertigo. She has been managing her vertigo symptoms with home remedies and has not been on any medications for it. The patient also reported recent dental surgery, having had her wisdom teeth removed earlier in the week. She speculated that she might be dehydrated and weak due to difficulty eating following the surgery. The patient described feeling weakness in her legs up to her knees and in her shoulders. She also mentioned having ongoing issues with her back, for which she has an upcoming appointment with her primary care provider. In addition to these symptoms, the patient experienced a panic attack. She has a history of anxiety but prefers to manage it without medication due to personal preference and the need to care for her two children. The patient also mentioned having poor eyesight. The patient reported having severe ear pain and pressure behind her eye prior to her dental surgery. She also noted that she has been experiencing dizziness, which she attributed to a large amount of wax in her left ear. The patient has been using Dramamine to manage her vertigo symptoms, which were diagnosed as BPPV. Timing/Duration: today Severity: severe Modifying Factors: Improves With: rest. Worsens With: movement Associated Symptoms: nausea, No vomiting, No chest pain, No fever, No headaches, No syncope, No seizure Allergies/Adverse Reactions: amoxicillin [From Augmentin] Allergy (Verified 06/14/24 12:59) amoxicillin trihydrate [From Augmentin] Allergy (Verified 06/14/24 12:59) chocolate flavor Allergy (Verified 06/14/24 12:59) clavulanic acid [From Augmentin] Allergy (Verified 06/14/24 12:59) Penicillins Allergy (Verified 06/14/24 12:59) potassium clavula *RETIRED-03/19/13 [From Augmentin] Allergy (Verified 06/14/24 12:59) potassium clavulanate [From Augmentin] Allergy (Verified 06/14/24 12:59) Home Medications: clindamycin HCL [Clindamycin HCl] 1 tab PO Q6H 06/14/24 [History] Hx Tetanus, Diphtheria Vaccination/Date Given: Yes Hx Influenza Vaccination/Date Given: No Hx Pneumococcal Vaccination/Date Given: No - Review of Systems All Other Systems: Reviewed and Negative - Past Medical History Pertinent Past Medical History: Yes Neurological History: No Pertinent History ENT History: No Pertinent History Cardiac History: No Pertinent History Respiratory History: No Pertinent History Endocrine Medical History: No Pertinent History Musculoskeletal History: Fractures, Other GI Medical History: No Pertinent History History: No Pertinent History Psycho-Social History: Anxiety Female Reproductive Disorders: No Pertinent History Other Medical History: 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 HAS TWO CHILDREN - AGE 2 MONTHS AND 2 YEARS - BOTH VAGINAL BIRTHS. - Past Surgical History Past Surgical History: Yes Neuro Surgical History: No Pertinent History Cardiac: No Pertinent History Respiratory: No Pertinent History Gastrointestinal: No Pertinent History Genitourinary: No Pertinent History Musculoskeletal: No Pertinent History Female Surgical History: No Pertinent History Other Surgical History: wisdom and molar removed 08/15/19 - Female History Hx Last Menstrual Period: 11/27 PPD - Social History Smoking Status: Former smoker How long have you smoked: 3 YEARS Exposure to second hand smoke: No Drug Use: none Patient Lives Alone: No - Nursing Vital Signs Nursing Vital Signs: Initial Vital Signs Temperature 98.1 F 06/14/24 12:59 Pulse Rate 76 06/14/24 12:59 Respiratory Rate 18 06/14/24 12:59 Blood Pressure 148/76 06/14/24 12:59 O2 Sat by Pulse Oximetry 100 06/14/24 12:59 Pain Scale Pain Intensity 0 - Physical Exam General Appearance: no apparent distress, anxiety Eye Exam: PERRL/EOMI, eyes nml inspection Ears, Nose, Throat Exam: normal ENT inspection, TMs normal (right), other (left ear canal impacted cerumen) Neck Exam: normal inspection, full range of motion Respiratory Exam: normal breath sounds, lungs clear, airway intact, No respiratory distress Cardiovascular Exam: regular rate/rhythm, normal heart sounds, capillary refill <2 sec, No edema Gastrointestinal/Abdomen Exam: soft, No tenderness, No distention, No mass, No guarding, No rebound Neurologic Exam: alert, oriented x 3, cooperative Skin Exam: normal color, warm, dry SpO2 Interpretation: normal O2 Delivery: Room Air - Course Nursing assessment & vital signs reviewed: Yes EKG Interpreted by Me: RATE (77), Sinus Rhythm, NORMAL AXIS, NORMAL INTERVALS, NORMAL QRS, NORMAL ST-T Ordered Tests: Active Orders 24 hr Category Date Time Status EKG-ER Only STAT Care 06/14/24 13:28 Active Ear Irrigation STAT Care 06/14/24 13:57 Active IV Insertion STAT Care 06/14/24 13:28 Active CBC W DIFF Stat Lab 06/14/24 13:45 Completed CMP Stat Lab 06/14/24 13:45 Completed ETHYL ALCOHOL Stat Lab 06/14/24 13:45 Completed HCG QUALITATIVE, SERUM Stat Lab 06/14/24 13:45 Received Lactic Acid Stat Lab 06/14/24 13:28 Ordered MAGNESIUM Stat Lab 06/14/24 13:45 Completed TSH [TSH, 3RD Generation] Stat Lab 06/14/24 14:06 Ordered UA W/RFX UR CULTURE Stat Lab 06/14/24 Completed Urine Triage Profile Stat Lab 06/14/24 Received Medication Summary Generic Name Dose Route Start Last Admin Trade Name Freq PRN Reason Stop Dose Admin Sodium Chloride 1,000 mls @ 999 mls/hr 06/14/24 13:28 06/14/24 13:57 Sodium Chloride 0.9% 1000 Ml IV 06/14/24 14:28 999 mls/hr .Q1H1M STA Administration Discontinued Medications Generic Name Dose Route Start Last Admin Trade Name Freq PRN Reason Stop Dose Admin Sodium Chloride Confirm 06/14/24 13:55 Sodium Chloride 0.9% 1000 Ml Administered 06/14/24 13:56 Dose 1,000 mls @ ud .ROUTE .STK-MED ONE Meclizine HCl 25 mg 06/14/24 13:28 06/14/24 13:57 Meclizine Hcl 25 Mg Tablet PO 06/14/24 13:29 25 mg STAT ONE Administration Meclizine HCl Confirm 06/14/24 13:55 Meclizine Hcl 25 Mg Tablet Administered 06/14/24 13:56 Dose 25 mg .ROUTE .STK-MED ONE Lab/Rad Data: Laboratory Result Diagrams 06/14/24 13:45 06/14/24 13:45 Laboratory Results 07/20/24 07/20/24 07/20/24 Range/Units Unknown 13:45 13:45 WBC (3.98-10.04) x10^3/uL RBC (3.93-5.22) x10^6/uL Hgb (11.2-15.7) g/dL Hct (34.1-44.9) % MCV (79.4-94.8) fL MCH (25.6-32.2) pg MCHC (32.2-35.5) g/dL RDW (11.7-14.4) % Plt Count (182-369) x10^3/uL MPV (9.4-12.3) fL Gran % (34.0-71.1) % Immature Gran % (Auto) (0.001-0.429) % Nucleat RBC Rel Count (0.00-0.2) % Eos # (Auto) (0.04-0.36) x10^3/uL Immature Gran # (Auto) (0.001-0.031) x10^3u/L Absolute Lymphs (auto) (1.18-3.74) x10^3/uL Absolute Monos (auto) (0.24-0.86) x10^3/uL Absolute Nucleated RBC (0.00-0.012) x10^3u/L Lymphocytes % (19.3-51.7) % Monocytes % (4.7-12.5) % Eosinophils % (0.7-5.8) % Basophils % (0.1-1.2) % Absolute Granulocytes (1.56-6.13) x10^3/uL Basophils # (0.01-0.08) x10^3/uL Sodium 140 (135-145) mmol/L Potassium 3.7 (3.5-5.1) mmol/L Chloride 105 (98-107) mmol/L Carbon Dioxide 22 (22-30) mmol/L Anion Gap 16.7 H (5-15) MEQ/L BUN 6 L (7-17) mg/dL Creatinine 0.80 (0.52-1.04) mg/dL Estimated GFR 101.0 ML/MIN Glucose 107 H (74-106) mg/dL Calcium 9.9 (8.4-10.2) mg/dL Magnesium 2.1 (1.6-2.3) mg/dL Total Bilirubin 0.70 (0.2-1.3) mg/dL AST 24 (14-36) U/L ALT 18 (0-35) U/L Alkaline Phosphatase 86 (38-126) U/L Serum Total Protein 8.2 (6.3-8.2) g/dL Albumin 4.7 (3.5-5.0) g/dL Serum HCG, Qual NEGATIVE (NEGATIVE) Urine Color Yellow (Yellow) Urine Appearance Clear (Clear) Urine pH 6.5 (4.6-8.0) Ur Specific [place] <=1.005 (1.005-1.030) Urine Protein Negative (Negative) Urine Glucose (UA) Negative (Negative) mg/dL Urine Ketones 15 A (Negative) Urine Blood Negative (Negative) Urine Nitrite Negative (Negative) Urine Bilirubin Negative (Negative) Urine Urobilinogen 0.2 (0.2) mg/dL Ur Leukocyte Esterase Trace A (Negative) U Hyaline Cast (Auto) NONE SEEN (0-2) /LPF Urine Microscopic RBC 0-2 (0-5) /HPF Urine Microscopic WBC 0-2 (0-5) /HPF Ur Epithelial Cells None Seen (None Seen) /HPF Urine Bacteria None Seen (None Seen) /HPF Urine Culture Reflexed NO (NO) Ethyl Alcohol < 10 (0-10) mg/dL 06/14/24 Range/Units 13:45 WBC 5.8 (3.98-10.04) x10^3/uL RBC 4.68 (3.93-5.22) x10^6/uL Hgb 13.8 (11.2-15.7) g/dL Hct 41.5 (34.1-44.9) % MCV 88.7 (79.4-94.8) fL MCH 29.5 (25.6-32.2) pg MCHC 33.3 (32.2-35.5) g/dL RDW 12.5 (11.7-14.4) % Plt Count 322 (182-369) x10^3/uL MPV 10.5 (9.4-12.3) fL Gran % 65.8 (34.0-71.1) % Immature Gran % (Auto) 0.3 (0.001-0.429) % Nucleat RBC Rel Count 0.0 (0.00-0.2) % Eos # (Auto) 0.04 (0.04-0.36) x10^3/uL Immature Gran # (Auto) 0.02 (0.001-0.031) x10^3u/L Absolute Lymphs (auto) 1.50 (1.18-3.74) x10^3/uL Absolute Monos (auto) 0.39 (0.24-0.86) x10^3/uL Absolute Nucleated RBC 0.00 (0.00-0.012) x10^3u/L Lymphocytes % 25.8 (19.3-51.7) % Monocytes % 6.7 (4.7-12.5) % Eosinophils % 0.7 (0.7-5.8) % Basophils % 0.7 (0.1-1.2) % Absolute Granulocytes 3.83 (1.56-6.13) x10^3/uL Basophils # 0.04 (0.01-0.08) x10^3/uL Sodium (135-145) mmol/L Potassium (3.5-5.1) mmol/L Chloride (98-107) mmol/L Carbon Dioxide (22-30) mmol/L Anion Gap (5-15) MEQ/L BUN (7-17) mg/dL Creatinine (0.52-1.04) mg/dL Estimated GFR ML/MIN Glucose (74-106) mg/dL Calcium (8.4-10.2) mg/dL Magnesium (1.6-2.3) mg/dL Total Bilirubin (0.2-1.3) mg/dL AST (14-36) U/L ALT (0-35) U/L Alkaline Phosphatase (38-126) U/L Serum Total Protein (6.3-8.2) g/dL Albumin (3.5-5.0) g/dL Serum HCG, Qual (NEGATIVE) Urine Color (Yellow) Urine Appearance (Clear) Urine pH (4.6-8.0) Ur Specific [place] (1.005-1.030) Urine Protein (Negative) Urine Glucose (UA) (Negative) mg/dL Urine Ketones (Negative) Urine Blood (Negative) Urine Nitrite (Negative) Urine Bilirubin (Negative) Urine Urobilinogen (0.2) mg/dL Ur Leukocyte Esterase (Negative) U Hyaline Cast (Auto) (0-2) /LPF Urine Microscopic RBC (0-5) /HPF Urine Microscopic WBC (0-5) /HPF Ur Epithelial Cells (None Seen) /HPF Urine Bacteria (None Seen) /HPF Urine Culture Reflexed (NO) Ethyl Alcohol (0-10) mg/dL - Progress Progress: improved Progress Note: CBC and CMP within normal limits. UA shows trace leukocyte Estrace, but no urinary symptoms. Ear lavage on the left ear performed and cerumen removed from the canal resulting in resolution of her dizziness. Will discharge home with prescription for meclizine. Counseled pt/family regarding: lab results, diagnosis, need for follow-up Medical Desision Making - Diagnostic Testing Diagnostic test were ordered, analyzed, and reviewed by me: Yes Radiological Interpretation: Interpreted by me, Reviewed by me, Teleradiologist Report - Risk of complications The pt has a mod risk of morbidity or mortality based on: Need for prescription drug management - Departure Departure Disposition: Home Clinical Impression: Impacted cerumen of left ear, Vertigo Condition: Good Critical Care Time: No Referrals: CELINE CORRAL MD [Primary Care Provider] - Follow up/PCP as directed Instructions: Vertigo (a Type of Dizziness) (DC) Prescriptions: Meclizine HCl 25 mg [Antivert 25 mg] 25 mg PO DAILY PRN 15 Days #15 tablet PRN Reason: Dizziness
[2024-06-14 13:22] VITALS: RESP 18; TEMP 98.1; O2SAT 100
[2024-06-14 13:49] LABS: Absolute Neutrophil Ct (ANC) 3.83 x10^3/uL (1.56-6.13); BASOPHIL % 0.7 % (0.1-1.2); Basophil (Absolute #) 0.04 x10^3/uL (0.01-0.08); Eosinophil % 0.7 % (0.7-5.8); Eosinophil (Absolute #) 0.04 x10^3/uL (0.04-0.36); Hematocrit 41.5 % (34.1-44.9); Hemoglobin 13.8 g/dL (11.2-15.7); IMMATURE GRAN # 0.02 x10^3u/L (0.001-0.031); IMMATURE GRAN % 0.3 % (0.001-0.429); Lymphocytes % 25.8 % (19.3-51.7); Mean Cell Volume 88.7 fL (79.4-94.8); Mean Corpuscular Hemoglobin 29.5 pg (25.6-32.2); Mean Corpuscular Hgb Concent. 33.3 g/dL (32.2-35.5); Mean Platelet Volume 10.5 fL (9.4-12.3); Monocyte (Absolute #) 0.39 x10^3/uL (0.24-0.86); Monocytes % 6.7 % (4.7-12.5); Neutrophil % 65.8 % (34.0-71.1); Platelet Count 322 x10^3/uL (182-369); Red Blood Count 4.68 x10^6/uL (3.93-5.22); Red Cell Distribution Width 12.5 % (11.7-14.4); White Blood Count 5.8 x10^3/uL (3.98-10.04)
[2024-06-14] MEDS ORDERED: Sodium Chloride 0.9% 1000 ML 1,000 ML ONE (13:55)
[2024-06-14] MEDS ORDERED: ANTIVERT 25 MG ONE (13:55)
[2024-06-14] MEDS: ANTIVERT 25 MG PO ONE (13:57)
[2024-06-14] MEDS: Sodium Chloride 0.9% 1000 ML 1,000 ML IV STA (13:57)
[2024-06-14 13:58] LABS: Appearance Clear (Clear); Bacteria None Seen /HPF (None Seen); Bilirubin Negative (Negative); Blood Negative (Negative); Epithelial Cells None Seen /HPF (None Seen); Glucose, Urine Negative (Negative); Hyaline Casts NONE SEEN /LPF (0-2); Ketones 15 (Negative); Leukocyte Esterase Trace (Negative); Nitrite Negative (Negative); Ph 6.5 (4.6-8.0); Protein,Urine Dip Negative (Negative); RBC 0-2 /HPF (0-5); Specific Gravity <=1.005 (1.005-1.030); Urobilinogen 0.2 mg/dL (0.2); WBC 0-2 /HPF (0-5)
[2024-06-14 14:02] LABS: ALBUMIN 4.7 g/dL (3.5-5.0); ALKALINE PHOSPHATASE 86 U/L (38-126); ANION GAP 16.7 MEQ/L (5-15); BLOOD UREA NITROGEN 6 mg/dL (7-17); CHLORIDE 105 mmol/L (98-107); Calcium 9.9 mg/dL (8.4-10.2); Carbon Dioxide 22 mmol/L (22-30); ETHYL ALCOHOL < 10 mg/dL (0-10); Glucose 107 mg/dL (74-106); MAGNESIUM 2.1 mg/dL (1.6-2.3); Potassium 3.7 mmol/L (3.5-5.1); SGOT/AST 24 U/L (14-36); SGPT/ALT 18 U/L (0-35); SODIUM 140 mmol/L (135-145); Total Protein 8.2 g/dL (6.3-8.2)
[2024-06-14 14:02] LABS: ADD URINE CULTURE? NO (NO)
[2024-06-14 14:07] LABS: HCG SERUM TEST NEGATIVE (NEGATIVE)
[2024-06-14 14:10] LABS: Amphetamine,Urine NEGATIVE (NEGATIVE); Barbiturate,Urine NEGATIVE (NEGATIVE); Benzodiazepine,Urine NEGATIVE (NEGATIVE); Cocaine,Urine NEGATIVE (NEGATIVE); Methadone,Urine NEGATIVE (NEGATIVE); Opiate,Urine NEGATIVE (NEGATIVE); PCP,Urine NEGATIVE (NEGATIVE); THC,Urine NEGATIVE (NEGATIVE)
[2024-06-14 14:16] VITALS: BP 109/62; PULSE 70
== END 2024-06-14 14:19 | disposition home or self-care (01) ==
LOC: ED 12:55
DX: H61.22 Impacted cerumen, left ear (principal); R42 Dizziness and giddiness; R53.1 Weakness; Z79.899 Other long term (current) drug therapy
CPT/HCPCS: 36000; 36415; 69210; 80053; 80307; 81001; 82077; 83605; 83735; 84443; 84703; 85025; 93005; 99284; A9270-GY

== ENCOUNTER 2024-07-28 09:00 | Emergency (ER) | payer OTHER ==
[2024-07-28 09:14] VITALS: TEMP 97.6; O2SAT 99
[2024-07-28] MEDS ORDERED: Kenalog-40 ONE (09:48)
[2024-07-28] MEDS: Kenalog-40 IM ONE (09:49)
--- NOTE | 2024-07-28 09:54 | ERPHSYRPT ---
- History of Present Illness Time Seen by Provider: 07/28/24 09:32 Source: patient Exam Limitations: no limitations ([id number]), physical impairment (/*) Patient Subjective Stated Complaint: Pt c/o of sinus pain/headache/ear pain Triage Nursing Assessment: Pt brought self to the ER, hypertensive, rates pain as 10/10 as she is laughing and drinking her coffee, states that she had congestion for about 2 weeks and now she has sinus pressure, headache and ear pain, pulses normal, skin n/w/d, doesn't appear to be in any distress Physician History: 33-year-old female with history of anxiety/depression/seasonal allergies presented to the ER with complaint of sinus/nasal congestion with some sore throat and bilateral earache. Patient reports increase postnasal drainage. No fever or chills reported. Reports having similar symptoms in the past with sinusitis. It started 3 days ago and is progressively worsening. Patient has bilateral nasal mucosal injection. Mild maxillary tenderness. No otitis externa. TMs normal. Pharyngeal erythema with no exudates with postnasal drip. I believe patient has sinusitis, given a shot of Kenalog and started on Flonase and Claritin. Recommended Tylenol ibuprofen as needed. Outpatient follow-up recommended. Do not think needs antibiotics. Discussed the course of disease and signs symptoms of worsening needing return to ER which she seems understanding. Stable for discharge. Allergies/Adverse Reactions: amoxicillin [From Augmentin] Allergy (Verified 07/28/24 09:11) amoxicillin trihydrate [From Augmentin] Allergy (Verified 07/28/24 09:11) chocolate flavor Allergy (Verified 07/28/24 09:11) clavulanic acid [From Augmentin] Allergy (Verified 07/28/24 09:11) Penicillins Allergy (Verified 07/28/24 09:11) potassium clavula *RETIRED-03/19/13 [From Augmentin] Allergy (Verified 07/28/24 09:11) potassium clavulanate [From Augmentin] Allergy (Verified 07/28/24 09:11) Home Medications: Hydroxyzine HCl 25 mg [Atarax 25 mg] 25 mg PO UD 07/28/24 [History] Sertraline HCl 50 mg [Zoloft 50 mg Tablet] 50 mg PO DAILY 07/28/24 [History] Hx Tetanus, Diphtheria Vaccination/Date Given: Yes Hx Influenza Vaccination/Date Given: No Hx Pneumococcal Vaccination/Date Given: No Travel Risk - International Travel Have you traveled outside of the country in past 3 weeks: No - Emerging Infectious Disease Are you exhibiting symptoms associated with any current EIDs: No - Review of Systems Constitutional: No Symptoms Eyes: No Symptoms Ears, Nose, & Throat: Ear Pain, Nose Congestion, Sinus Drainage, Throat Pain Respiratory: No Symptoms Cardiac: No Symptoms Abdominal/Gastrointestinal: No Symptoms Musculoskeletal: No Symptoms Skin: No Symptoms Neurological: No Symptoms Endocrine: No Symptoms Hematologic/Lymphatic: No Symptoms - Past Medical History Pertinent Past Medical History: Yes Neurological History: No Pertinent History ENT History: No Pertinent History Cardiac History: No Pertinent History Respiratory History: No Pertinent History Endocrine Medical History: No Pertinent History Musculoskeletal History: Fractures, Other GI Medical History: No Pertinent History History: No Pertinent History Psycho-Social History: Anxiety Female Reproductive Disorders: No Pertinent History Other Medical History: 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 HAS TWO CHILDREN - AGE 2 MONTHS AND 2 YEARS - BOTH VAGINAL BIRTHS. - Past Surgical History Past Surgical History: Yes Neuro Surgical History: No Pertinent History Cardiac: No Pertinent History Respiratory: No Pertinent History Gastrointestinal: No Pertinent History Genitourinary: No Pertinent History Musculoskeletal: No Pertinent History Female Surgical History: No Pertinent History Other Surgical History: wisdom and molar removed 08/15/19 - Female History Hx Last Menstrual Period: 1/2 PPD Hx Now: No - Social History Smoking Status: Former smoker How long have you smoked: 3 YEARS Exposure to second hand smoke: No Drug Use: none Patient Lives Alone: No - Social Determinants of Health Will the patient participate in the screening: Declined to provide - Nursing Vital Signs Nursing Vital Signs: Initial Vital Signs Temperature 97.6 F 07/28/24 09:03 Pulse Rate 89 07/28/24 09:03 Blood Pressure 133/104 07/28/24 09:03 O2 Sat by Pulse Oximetry 99 07/28/24 09:03 Pain Scale Pain Intensity 10 - Physical Exam General Appearance: no apparent distress, alert Eye Exam: bilateral eye: normal inspection, PERRL, EOMI Ear Exam: bilateral ear: auricle normal, canal normal, TM normal, other Nasal Exam: sinus tenderness Throat Exam: moist mucus membranes, No pharynx normal Neck Exam: normal inspection, non-tender, supple, full range of motion Cardiovascular/Respiratory Exam: normal breath sounds, regular rate/rhythm Neurologic Exam: alert, oriented x 3, cooperative, processing lead II-XII nml as tested Skin Exam: normal color SpO2 Interpretation: normal SpO2: 99 O2 Delivery: Room Air Ordered Tests: Medication Summary Discontinued Medications Generic Name Dose Route Start Last Admin Trade Name Freq PRN Reason Stop Dose Admin Triamcinolone Acetonide 40 mg 07/28/24 09:32 Triamcinolone Acetonide 40 Mg/Ml Ml IM 07/28/24 09:33 STAT ONE - Progress Progress: unchanged Progress Note: 07/28/24 09:55 33-year-old female with history of anxiety/depression/seasonal allergies presented to the ER with complaint of sinus/nasal congestion with some sore throat and bilateral earache. Patient reports increase postnasal drainage. No fever or chills reported. Reports having similar symptoms in the past with sinusitis. It started 3 days ago and is progressively worsening. Patient has bilateral nasal mucosal injection. Mild maxillary tenderness. No otitis externa. TMs normal. Pharyngeal erythema with no exudates with postnasal drip. I believe patient has sinusitis, given a shot of Kenalog and started on Flonase and Claritin. Recommended Tylenol ibuprofen as needed. Outpatient follow-up recommended. Do not think needs antibiotics. Discussed the course of disease and signs symptoms of worsening needing return to ER which she seems understanding. Stable for discharge. Counseled pt/family regarding: diagnosis, need for follow-up Medical Desision Making - Diagnostic Testing Diagnostic test were ordered, analyzed, and reviewed by me: No - Risk of complications The pt has a mod risk of morbidity or mortality based on: Need for prescription drug management - Departure Departure Disposition: Home Clinical Impression: Acute sinusitis Condition: Stable Critical Care Time: No Referrals: CELINE CORRAL MD [Primary Care Provider] - Follow up with PCP 1 day Instructions: Sinusitis in adults Additional Instructions: Tylenol/ibuprofen as needed. Follow-up with primary care for reevaluation. Return to ER for any worsening. Prescriptions: Loratadine 10 mg [Claritin 10 mg] 10 mg PO DAILY 10 Days #10 tablet Fluticasone Propionate [Flonase NASAL] 16 gm NS DAILY 10 Days #1 inh
[2024-07-28 10:07] VITALS: BP 105/81; PULSE 80; RESP 16
== END 2024-07-28 10:06 | disposition home or self-care (01) ==
LOC: ED 09:00
DX: J01.90 Acute sinusitis, unspecified (principal); J02.9 Acute pharyngitis, unspecified; H92.03 Otalgia, bilateral; Z79.899 Other long term (current) drug therapy
CPT/HCPCS: 96372; 99282; J3301